=== PATIENT | male | born 1975 | race Caucasian/White ===

== ENCOUNTER 2019-02-26 12:54 | Emergency (ER) | payer OTHER ==
[2019-02-26] MEDS: traMADol 50 MG TAB PO (13:57)
[2019-02-26] MEDS: KETOROLAC 60 MG INJ IM (13:58)
== END 2019-02-26 15:12 | disposition home or self-care (01) ==
LOC: FTE 12:54
DX: M77.31 Calcaneal spur, right foot (principal); E11.9 Type 2 diabetes mellitus without complications; J45.909 Unspecified asthma, uncomplicated
CPT/HCPCS: 73630; 96372; 99284-25